=== PATIENT | female | born 1990 ===

== ENCOUNTER → 2019-07-04 | Outpatient (CLI) | payer OTHER ==
[~2019-07-04] MED LIST: ALBU90OI INH
== END | disposition home or self-care (01) ==
LOC: LAB SHORT 12:51 → LAB EV 12:51
DX: R10.9 Unspecified abdominal pain (principal)
CPT/HCPCS: 87086

== ENCOUNTER → 2019-10-07 | Outpatient (CLI) | payer OTHER | END | disposition home or self-care (01) | LOC: LAB EV 16:23 → LAB SHORT 16:23 | DX: R06.02 Shortness of breath (principal) | CPT/HCPCS: 85379 ==

== ENCOUNTER → 2020-06-13 | Outpatient (CLI) | payer OTHER | END | disposition home or self-care (01) | LOC: LAB SHORT 19:18 → LAB 19:18 | DX: N30.01 Acute cystitis with hematuria (principal); R30.0 Dysuria | CPT/HCPCS: 87086 ==

== ENCOUNTER → 2020-08-24 | Outpatient (CLI) | payer OTHER ==
[2020-08-24 15:29] LABS: Candida species (DNA Probe) Negative (NEGATIVE); G. vaginalis (DNA Probe) Positive (NEGATIVE); T. vaginalis (DNA Probe) Negative (NEGATIVE)
== END | disposition home or self-care (01) ==
LOC: LAB 10:50 → LAB SHORT 10:50
PROVIDERS: Nurse Practitioner Family
DX: N89.8 Other specified noninflammatory disorders of vagina (principal); Z20.2 Contact with and (suspected) exposure to infections with a predominantly sexual mode of transmission; Z72.51 High risk heterosexual behavior
CPT/HCPCS: 87070; 87205; 87480; 87510; 87660

== ENCOUNTER → 2021-03-02 | Outpatient (CLI) | payer OTHER | LOC: LAB 18:32 → LAB SHORT 18:32 | DX: N39.0 Urinary tract infection, site not specified (principal) | CPT/HCPCS: 87086 ==

== ENCOUNTER → 2021-03-09 | Outpatient (CLI) | payer OTHER ==
[2021-03-11 13:11] LABS: HPV 16 Negative (Negative); HPV 18 Negative (Negative); HPV OTHER HR TYPES Negative (Negative)
[2021-03-12 07:10] LABS: CHLAMYDIA TRACHOMATIS, NAA Negative (Negative)
== END | disposition home or self-care (01) ==
LOC: LAB 15:00 → LAB SHORT 15:00
PROVIDERS: Family Medicine
DX: Z01.419 Encounter for gynecological examination (general) (routine) without abnormal findings (principal); N39.0 Urinary tract infection, site not specified
CPT/HCPCS: 87086; 87491; 87591; 87624; G0123

== ENCOUNTER 2022-05-31 19:53 | Inpatient (IN) | payer OTHER ==
[~2022-05-31] VITALS: Ht 165.1 cm; Wt 85.0 kg
[2022-05-31] MEDS ORDERED: VALA500 (21:36)
[2022-05-31] MEDS ORDERED: VALA500 PO (21:36)
[2022-05-31] MEDS ORDERED: PRENATAL TABLE1 EAC2 PO (21:37)
[2022-05-31 22:18] LABS: BASOPHILS ABSOLUTE AUTO 0.02 K/mm3 (0.00-0.23); BASOPHILS PERCENT AUTO 0 % (0-2); EOSINOPHILS ABSOLUTE AUTO 0.05 K/mm3 (0.00-0.68); EOSINOPHILS PERCENT AUTO 1 % (0-6); Hematocrit 37.5 % (33.0-51.0); Hemoglobin 13.1 g/dL (11.5-16.0); IMMATURE GRAN ABSOLUTE AUTO 0.03 K/mm3 (0.00-0.10); IMMATURE GRAN PERCENT AUTO 1 % (0-1); LYMPHOCYTES ABSOLUTE AUTO 1.83 K/mm3 (0.84-5.20); LYMPHOCYTES PERCENT AUTO 28 % (21-46); MONOCYTES ABSOLUTE AUTO 0.54 K/mm3 (0.16-1.47); MONOCYTES PERCENT AUTO 8 % (4-13); Mean Corpuscular HGB 34.1 pg (26.0-34.0); Mean Corpuscular HGB Conc 34.9 g/dL (31.5-36.5); Mean Corpuscular Volume 98 fL (80-100); Mean Platelet Volume 9.2 fL (9.1-12.4); NEUTROPHILS ABSOLUTE AUTO 4.09 K/mm3 (1.96-9.15); NEUTROPHILS PERCENT AUTO 62 % (41-73); Platelet Count 173 K/mm3 (150-400); RDW Coefficient Variation 12.8 % (11.7-14.2); RDW Standard Deviation 45.5 fL (35.1-46.3); Red Blood Cell Count 3.84 M/mm3 (3.80-5.20); White Blood Cell Count 6.56 K/mm3 (4.00-11.30)
[2022-06-02 06:25] LABS: Hematocrit 33.8 % (33.0-51.0); Hemoglobin 11.6 g/dL (11.5-16.0); Mean Corpuscular HGB 33.9 pg (26.0-34.0); Mean Corpuscular HGB Conc 34.3 g/dL (31.5-36.5); Mean Corpuscular Volume 99 fL (80-100); Platelet Count 145 K/mm3 (150-400); RDW Coefficient Variation 12.9 % (11.7-14.2); RDW Standard Deviation 46.7 fL (35.1-46.3); Red Blood Cell Count 3.42 M/mm3 (3.80-5.20); White Blood Cell Count 9.59 K/mm3 (4.00-11.30)
--- NOTE | 2022-06-02 17:00 | NUR ---
CLARIFY- CHARTING BY EP REVIEWED
--- NOTE | 2022-06-02 17:00 | NUR ---
ALL CHARTING REVIEWED
--- NOTE | 2022-06-02 17:12 | NUR ---
PRINTED DISCHARGE INSTRUCTIONS AND REVIEWED WITH PATIENT AND SIGNIFICANT OTHER. QUESTIONS WERE ANSWERED AND VERBALIZED UNDERSTANDING. ID BANDS MATCHED WITH AND VERIFICATION FORM. PATIENT DISCHARGED HOME AMBULATORY TO CARE OF SIGNIFICANT OTHER.
== END 2022-06-02 16:55 | disposition home or self-care (01) | DRG 807 ==
LOC: OBS 19:53 → BC 19:56 → OBS 20:08 → BC 20:09
PROVIDERS: ADMIT Advanced Practice Midwife
PROC: 3E033VJ Introduction of Other Hormone into Peripheral Vein, Percutaneous Approach (ICD-10-PCS; 2022-05-31)
PROC: 10E0XZZ Delivery of Products of Conception, External Approach (ICD-10-PCS; principal; 2022-06-01)
PROC: 3E0R3BZ Introduction of Anesthetic Agent into Spinal Canal, Percutaneous Approach (ICD-10-PCS; 2022-06-01)
PROC: 00HU33Z Insertion of Infusion Device into Spinal Canal, Percutaneous Approach (ICD-10-PCS; 2022-06-01)
PROC: 0HQ9XZZ Repair Perineum Skin, External Approach (ICD-10-PCS; 2022-06-01)
PROC: 3E0P7VZ Introduction of Hormone into Female Reproductive, Via Natural or Artificial Opening (ICD-10-PCS; 2022-06-01)
PROC: 3E0234Z Introduction of Serum, Toxoid and Vaccine into Muscle, Percutaneous Approach (ICD-10-PCS; 2022-06-01)
PROC: 3E0234Z Introduction of Serum, Toxoid and Vaccine into Muscle, Percutaneous Approach (ICD-10-PCS; 2022-06-01)
DX: O41.03X0 Oligohydramnios, third trimester, not applicable or unspecified (principal); Z37.0 Single live birth; O24.420 Gestational diabetes mellitus in childbirth, diet controlled; O69.81X0 Labor and delivery complicated by cord around neck, without compression, not applicable or unspecified; O70.0 First degree perineal laceration during delivery; Z3A.38 38 weeks gestation of pregnancy; Z23 Encounter for immunization
CPT/HCPCS: 36415; 51702; 85025; 85027; 86850; 86900; 86901; A9270; J1885; J2590; J3010; J7120

== ENCOUNTER → 2023-06-25 | Outpatient (CLI) | payer BC, OTHER ==
[~2023-06-25] MED LIST changes: +PRENATAL TABLE1 EAC2 PO; +VALA500; +VALA500 PO
== END | disposition home or self-care (01) ==
LOC: LAB SHORT 16:08 → LAB 16:08
DX: N39.0 Urinary tract infection, site not specified (principal)
CPT/HCPCS: 87086